=== PATIENT | male | born 1955 | race Caucasian/White ===

== ENCOUNTER 2017-01-31 13:58 | Emergency (ER) | payer OTHER ==
[~2017-01-31 13:58] MED LIST: AMITRIPTYLINE H25 MG PO; ASPIRINEC PO; LIPITOR20 MG PO; LISINOPRIL20 MG PO; LOPRESSOR PO; NEURONTIN600 MG PO; OXYCODON HCL-AP1 TA2 PO; [UNRECOGNIZED DRUG - REMARK]
[2017-01-31] MEDS ORDERED: LIPITOR20 MG PO (14:10)
[2017-01-31] MEDS ORDERED: PERCOCET10 PO (14:11)
[2017-01-31] MEDS ORDERED: LOPRESSOR PO (14:11)
[2017-01-31] MEDS ORDERED: AMITRIPTYLINE H25 MG PO (14:12)
== END 2017-01-31 16:58 | disposition home or self-care (01) ==
LOC: SED 13:58
DX: S01.91XA Laceration without foreign body of unspecified part of head, initial encounter (principal); F17.200 Nicotine dependence, unspecified, uncomplicated; Z88.8 Allergy status to other drugs, medicaments and biological substances; Z79.899 Other long term (current) drug therapy; Z23 Encounter for immunization; W22.8XXA Striking against or struck by other objects, initial encounter; Y92.009 Unspecified place in unspecified non-institutional (private) residence as the place of occurrence of the external cause
CPT/HCPCS: 90471; 90715; 99283